=== PATIENT | female | born 1980 | race Caucasian/White ===

== ENCOUNTER 2017-01-15 13:04 | Emergency (ER) | payer OTHER ==
[~2017-01-15] VITALS: Ht 172.7 cm; Wt 125.5 kg
[2017-01-15 13:08] VITALS: BP 133/86; PULSE 77; RESP 18; O2SAT 99
--- NOTE | 2017-01-15 15:28 | ED.REPORT ---
HPI-Dizziness / Weakness Date of Service Jan 15, 2017 ED Provider: Dr. Almazan The pt is a 36 y/o female with hx of Type II DM and thyroid disease who presents to the ED complaining of intermittent dizziness for the last year, with the most recent episode just prior to arrival while she was at work. She describes it as "seeing spots and kind of cloudy". Before such spells, she becomes diaphoretic and short of breath. Does not describe vertigo. She also experienced slight chest pain while at work today. She has been experiencing similar transient chest pain for the last month. Her sx have become more frequent in the last couple of months. She reports a couple of road trips to [facility] about two months ago. Her last menstrual period was a week and a half ago. She is not on control. Nursing Notes Chief Complaint: Neuro Symptoms/ Deficits Nursing Notes Reviewed: Yes Allergies: Coded Allergies: latex (Verified Allergy, Mild, 01/15/17) General Time Seen by MD: 15:28 Chief Complaint Dizzy Hx Obtained From: Patient Arrived By: Walk-in Onset Occurred: More than a week ago... (>6 months) Symptom Duration: Intermittent Location: : Chest Quality: Painful Severity: Current: Mild Severity: Maximum: Mild Recent Healthcare: No recent doctor visit Similar Sx Previous: Yes Past Medical History Past Medical History Notes: PCP: Delfino Clinton Past Medical History Heart murmur Reports: Diabetes mellitus Reports: Thyroid disease Past Surgical History none reported Family History Many relatives on the father's side have arrhythmia. Smoking History Never Smoker Social History Alcohol Use: "Social" Drug Use: Denies drug use Ambulatory Status Independent Review of Systems Respiratory: Reports: Shortness of breath Cardiovascular: Reports: Chest pain Skin: Reports Diaphoresis Neurologic: Reports: Dizziness (intermittent), Vision change ("seeing spots and kind of cloudy") Complete sys rev & neg: except as marked. Physical Exam Initial Vital Signs Vital Signs (First) Date Time Temp Pulse Resp B/P Pulse Ox O2 Delivery O2 Flow Rate FiO2 01/15/17 13:08 36.8 77 18 133/86 99 Room Air Initial VS: Reviewed Neck: Supple, Non-tender, Full range of motion Extremities: Vascular intact, Neuro intact, No swelling, No tenderness Skin: Warm, Dry, No cyanosis General/Constitutional: Awake, Alert, Well appearing, Cooperative Distress / Hydration: Positive: Distress mild Head / Eyes: Atraumatic, Normocephalic Respiratory / Chest: Atraumatic, Breath sounds NL, Breath sounds = bilat, No respiratory distress, No rales, No rhonchi, No wheezing Cardiovascular: Heart rate NL, Regular rhythm, Heart sounds NL, No gallop, No rubs Heart Sounds / Murmur: Positive: Murmur present... (II/; left lower sternal border) Neurologic: Oriented X3, Speech NL, No motor deficits, No sensory deficits Abdomen: Atraumatic, Soft, Non-tender, No guarding, No rebound, BS normoactive Interpretation & Diagnostics Lab Results Interpretation Result Diagram: 01/15/17 1552 01/15/17 1552 Test 01/15/17 15:52 White Blood Count 12.1th/mm3 (3.8-10.1) Red Blood Count 4.48mil/mm3 (3.90-5.20) Hemoglobin 13.6g/dL (12.0-15.6) Hematocrit 39.0% (35.0-46.0) Mean Corpuscular Volume 87.1fL (81-100) Mean Corpuscular Hemoglobin 30.4pg (27.0-35.0) Mean Corpuscular Hemoglobin Concent 34.9% (32.0-37.0) Red Cell Distribution Width 12.7% (12.3-15.4) Platelet Count 382bil/L (150-400) Neutrophils (%) (Auto) 61.0% (40-74) Lymphocytes (%) (Auto) 27.7% (14-46) Monocytes (%) (Auto) 7.8% (4-12) Eosinophils (%) (Auto) 3.1% (0-5) Basophils (%) (Auto) 0.2% (0-3) D-Dimer < 0.50mg/L FEU (<0.50) Sodium Level 138mEq/L (134-144) Potassium Level 3.3mEq/L (3.5-5.2) Chloride Level 96mEq/L (97-108) Carbon Dioxide Level 28mmol/L (18-29) Blood Urea Nitrogen 13mg/dL (6-20) Creatinine 0.64mg/dL (0.57-1.00) Estimat Glomerular Filtration Rate 152mL/min (>59) Glucose Level 174mg/dL (60-99) Calcium Level 9.5mg/dL (8.5-10.1) Magnesium Level 1.6mg/dL (1.6-2.6) Total Bilirubin 0.6mg/dL (0.0-1.2) Aspartate Amino Transf (AST/SGOT) 20U/L (0-50) Alanine Aminotransferase (ALT/SGPT) 17U/L (0-32) Alkaline Phosphatase 105U/L (25-150) Troponin T < 0.010ug/L (0.0-0.011) Total Protein 8.0g/dL (6.4-8.4) Albumin 4.2g/dL (3.4-5.0) Thyroid Stimulating Hormone (TSH) 49.420uIU/mL (0.450-4.500) Free Thyroxine 0.50ng/dL (0.82-1.77) Lab Results Interpretation: Negative test. Negative drug screen test. ECG Interpretation ECG Interpretation: Normal sinus rhythm. Rate 67. Low voltage, precordial leads. Prolonged QT interval. Time: 16:00 Interpreted by: ED physician X-Ray Chest Interpretation Chest Xray Interpretation: IMPRESSION: Negative chest. No acute cardiopulmonary process is evident. Dictated by: Micheal Campos M.D. on 01/15/2017 at 15:16 Approved by: Micheal Campos M.D. on 01/15/2017 at 15:16 View: Portable, 1 view Interpretation / Wet Read by: Interpret - Radiologist Re-Eval/Medical Decision Source of Hx: Old records Re-Evaluation/Progress #1: Time of Eval: 17:05 Re-Evaluation/Progress Note: Rechecked pt. She is still slightly short of breath. Re-Evaluation/Progress #2: Time of Eval: 18:52 Re-Evaluation/Progress Note: Rechecked pt. Discussed lab results, imaging results, diagnosis and plan to discharge. Pt understands and agrees with the plan. F/U instruction and RTER warning given. All questions addressed Counseled Regarding: Diagnosis, Lab results, Need for follow-up, When/why to return to ED Patient Discharge & Departure Impression: Primary Impression: Dizzy spells Additional Impressions: Diabetes mellitus type 1, controlled Diabetes mellitus complication status: with unspecified complications Qualified Code: E10.8 - Type 1 diabetes mellitus with unspecified complications Hypokalemia Hypothyroid Hypothyroidism type: unspecified Qualified Code: E03.9 - Hypothyroidism, unspecified Disposition: Home Discharge Condition All VS Reviewed: Yes Condition: Stable Additional Instructions: Emergency department evaluation today included interview, examination, labs, ECG. No serious cause for episodic dizzy spells is identified. We will mildly low potassium, an oral dose of potassium was given here, dietary supplementation with potassium-containing foods such as bananas and tomatoes likely be sufficient. Thyroid-stimulating hormone is markedly elevated indicating hypothyroidism. We added a free T4 which primary care can follow up with. Continue previous home medications. Return to emergency department if having recurrent symptoms chest pain and frequent vomiting or abdominal pain. Follow-up with primary care soon. Try to check blood sugars when you have these symptoms. Referrals: OTHER,PHYSICIAN (PCP) (Family) Scribe Attestation Portions of this note were transcribed by Mehnaz Salas. I,, personally performed the history,physical exam and medical decision-making;I reviewed and confirmed the accuracy of the information in the transcribed note. Signed by Mulugeta Ledezma. 01/15/17 Elmo Almazan MD Jan 15, 2017 15:28 Mehnaz Salas Jan 15, 2017 15:40 Mehnaz Salas Jan 15, 2017 15:40
[2017-01-15 15:56] LABS: BASOPHILS % (AUTO) 0.2 % (0-3); EOSINOPHILS % (AUTO) 3.1 % (0-5); MONOCYTES % (AUTO) 7.8 % (4-12); Mean Corpuscular Hemoglobin 30.4 pg (27.0-35.0); Mean Corpuscular Volume 87.1 fL (81-100); Platelet Count 382 bil/L (150-400)
--- NOTE | 2017-01-15 16:18 | DRSVH ---
PROCEDURE: X-RAY CHEST ONE VIEW, PORTABLE ([id number]) INDICATIONS: chest pain/dyspnea TECHNIQUE: One view of the chest was acquired. COMPARISON: None. FINDINGS: Surgical changes and devices: None. Lungs and pleura: No pleural effusions or pneumothorax. Lungs are clear. Mediastinum: Mediastinal contours appear normal. Heart size is normal. Bones and chest wall: No suspicious bony lesions. Overlying soft tissues appear unremarkable. IMPRESSION: Negative chest. No acute cardiopulmonary process is evident. Dictated by: Micheal Campos M.D. on 01/15/2017 at 15:16 Approved by: Micheal Campos M.D. on 01/15/2017 at 15:16
[2017-01-15 16:23] LABS: TROPONIN T < 0.010 ug/L (0.0-0.011)
[2017-01-15 16:28] LABS: Magnesium 1.6 mg/dL (1.6-2.6)
[2017-01-15 17:24] VITALS: BP 105/70; PULSE 82; RESP 22; O2SAT 97
[2017-01-15] MEDS ORDERED: Potassium Chloride 20 mEq SR Tablet PO ONE (18:00)
[2017-01-15 18:58] VITALS: BP 111/72; PULSE 73; RESP 17; O2SAT 98
[2017-01-15 19:04] VITALS: BP 111/72; PULSE 73; RESP 17; O2SAT 98
== END 2017-01-15 19:05 | disposition home or self-care (01) ==
LOC: SED 13:04
DX: E10.8 Type 1 diabetes mellitus with unspecified complications (principal); E87.6 Hypokalemia; E03.9 Hypothyroidism, unspecified; R06.02 Shortness of breath; Z91.040 Latex allergy status